=== PATIENT | female | born 1945 | race Two or more races ===

== ENCOUNTER 2025-02-24 13:29 | Emergency (ER) | payer MEDICARE, MEDICAID, SELFPAY ==
[2025-02-24 13:37] VITALS: BP 117/79; PULSE 109; RESP 20; TEMP 37.3; O2SAT 96
--- NOTE | 2025-02-24 13:46 | XR_ITS ---
EXAMINATION: Ankle, right 3 views . Technique: Ankle AP, oblique, lateral 3 views Date and time of exam: February 24, 2025 1407 hours INDICATIONS: Right ankle pain after falling 3 weeks ago. FINDINGS: Severe osteopenia No acute fracture depicted involving the ankle IMPRESSION: Limited study secondary to the severe osteopenia in the casting material No acute ankle fracture depicted
--- NOTE | 2025-02-24 13:46 | XR_ITS ---
Examination:Right hip AP, lateral, AP pelvis 3 views Technique: Hip AP lateral, AP pelvis, 3 views Exam date and time:February 24, 2025 1407 hours INDICATIONS: Patient fell 3 weeks ago with injury to the right hip, right hip pain. FINDINGS: Congenital right hip dysplasia Severe osteopenia No acute hip or pelvic fracture IMPRESSION: Severe osteopenia No definite acute hip fracture Recommend 1 day follow-up as clinically warranted, incidental note very large amounts of stool in the rectum.
--- NOTE | 2025-02-24 13:46 | XR_ITS ---
Examination: Knee, right , 3 views Technique: Knee AP, lateral, oblique 3 views Date and time of exam: February 24, 2025 1407 hours INDICATIONS: Patient fell 3 weeks ago with injury to the knee, knee pain. FINDINGS: Severe osteopenia. Acute fracture proximal tibial shaft, 4 mm offset at the fracture site Femoral condyles intact IMPRESSION: Fracture tibial shaft with 4 mm offset at the main fracture site
--- NOTE | 2025-02-24 13:46 | XR_ITS ---
Examination: AP chest single view Technique one AP portable upright chest single view Date and time: February 24, 2025 1415 hours INDICATIONS: Abdominal pain constipation shortness of breath today. FINDINGS: Severe osteopenia Severe thoracic dextroscoliosis. Normal heart size Severe lumbar levoscoliosis Significant stool throughout the colon, massive amounts of stool in the rectosigmoid Congenital right hip dysplasia IMPRESSION: Massive amounts of stool in the rectosigmoid, no obstruction
--- NOTE | 2025-02-24 13:46 | XR_ITS ---
Examination: Tibia-Fibula, 2 views Technique one AP lateral tibia-fibula right 2 views Date and time: February 24, 2025 1407 hours INDICATIONS: Patient fell 3 weeks ago with injury to the lower leg, lower leg pain. FINDINGS: Subacute comminuted fractures proximal tibial shaft with 4 mm offset on the attempted lateral view Partial healing fracture mid fibular shaft in addition with early healing IMPRESSION: Fractures as above
--- NOTE | 2025-02-24 13:49 | EDRME_ITS ---
Rapid Medical Screening Exam RME Arrival date/time: 02/24/25 13:29 CC: Constipation for 30 days, right ankle knee and leg pain status post fall on February 03. Care provider at bedside states the patient fell February 03 has had 1 x- ray where there was 2 cracked bones from [facility] referred to the emergency room for complete workup. No prior workup regarding the leg pain has been done since the fall. For the past 30 days patient states she has had been constipated with self evacuation of small amount of stool. Patient denies chest pain shortness of breath or difficulty breathing Chief Complaint: General Adult/Misc Complain Time Seen by Provider: 02/24/25 13:31 Vital signs: Vital Signs Temperature 99.2 F 02/24/25 13:37 Pulse Rate 109 H 02/24/25 13:37 Respiratory Rate 20 02/24/25 13:37 Blood Pressure 117/79 02/24/25 13:37 Pulse Oximetry (%) 96 02/24/25 13:37 Oxygen Delivery Method Room Air 02/24/25 13:37
--- NOTE | 2025-02-24 16:34 | EDNOTE_ITS ---
<Statement entered by Fawn Jimenez MD - 02/25/25 15:27> I, Fawn Jimenez MD, have reviewed the history, exam, and assessment of the patient. I have evaluated the patient independently and agree with the plan of care documented by [ ]. All diagnostic studies were reviewed and discussed. I confirm the diagnosis as documented by the Resident. I was present during the Medical Decision Making for this patient. The patient's plan of care was created between myself and the Resident and consistent with our discussion of the patient's case. ED General RME/HPI General Chief complaint: General Adult/Misc Complain Stated complaint: No BM X 1 month, fall, pain to right side Time Seen by Provider: 02/24/25 13:31 Arrival date/time: 02/24/25 13:29 RME / HPI RME / HPI narrative: 02/24/25 13:29 CC: Constipation for 30 days, right ankle knee and leg pain status post fall on February 03. Care provider at bedside states the patient fell February 03 has had 1 x- ray where there was 2 cracked bones from [facility] referred to the emergency room for complete workup. No prior workup regarding the leg pain has been done since the fall. For the past 30 days patient states she has had been constipated with self evacuation of small amount of stool. Patient denies chest pain shortness of breath or difficulty breathing 79-year-old female with past medical history of severe scoliosis, hypertension, hyperlipidemia, and paraplegia comes into the ED due to complaints of constipation for around 1 month and 1 week where she has not been able to pass any bowel movements. Patient states that she initially was able to pass some small amounts of stool, but that since then she has not been able to pass any stool at all and that she feels a lot of pain when she tries to go to the restroom to pass a bowel movement. She does state that the pain is similar to giving . She does mention that she has not been having any nausea or vomiting, but she has been having feelings of her food getting stuck in her stomach and not going down anymore. She stated that this got better with [id number] antiacids. Patient also had a fall around February 02 and she later on went to the primary care physician who stated her that she had a broken bone and advised her to come to the ED. Patient does have an Harrison wrap and stated that before the injury she was able to transfer from her wheelchair to the sofa or to her bed, but ever since the injury she has not been able to transfer anymore. Otherwise she does not have any chest pain, shortness of breath, fevers, dysuria, or dizziness. Otherwise no other complaints at this time. past medical history of severe scoliosis, hypertension, hyperlipidemia, and paraplegia Admits smoking marijuana, denies smoking cigarettes, denies alcohol, denies any other illicit drugs. Related Data Home Medications ?Medication ?Instructions ?Recorded ?Confirmed Amlodipine Besylate 5 mg PO QDAY ##0 07/19/13 gabapentin 300 mg capsule 300 mg PO TID #0 caps TIZANIDINE HCL 4 mg PO QDAY ##0 12/08/16 atorvastatin 80 mg tablet (Lipitor) 80 mg PO HS #0 tab s 12/08/16 omeprazole 20 mg tablet,delayed 20 mg PO QDAY ##0 11/19 08/06 release Previous Rx's ?Medication ?Instructions ?Recorded alprazolam 0.25 mg tablet (Xanax) 1 tab DIET ASSISTANT tid/prn an xiety #12 tabs 12/08/16 Allergies Allergy/AdvReac Type Severity Reaction Status Date / Time NKA* Allergy Uncoded 02/24/25 13:35 Review of Systems Review of Systems Systems Reviewed: All systems reviewed, normal except as documented Past Medical History Past Medical History Comments PMH COMMENT: past medical history of severe scoliosis, hypertension, hyperlipidemia, and paraplegia Admits smoking marijuana, denies smoking cigarettes, denies alcohol, denies any other illicit drugs. ED Exam Narrative Physical exam: Gen: A&O X 3, NAD HEENT: NCAT, EOMI, Pupils reactive BIANCA, not icteric. External ears normal. No rhinorrhea. Dry mucous membranes. Neck: Supple, full range of motion, no observable masses, No meningeal sign. Lungs: No Respiratory distress, clear bilateral. CV: RRR, no murmurs. Abdomen: Soft and nondistended, but mass in the lower abdomen noted most likely stool given severe obstipation. Abdomen deformity secondary to scoliosis MSK: Bilateral lower extremity paraplegia, right leg was wrapped with an Harrison wrap, pulses were present bilaterally, not able to move bilateral lower extremities secondary to paraplegia. Swollen right foot. Bilateral upper extremities thin, but no deformities or lesions. Skin: No rashes, petechiae, lesions.. Neuro: No focal neurological deficits appreciated, sensory and motor intact. Psych: Cooperative, appropriate mood and effect. Course Quality Measures none Orders Category Date Time Status Enema Administration NOW Care 02/24/25 16:22 Active Splint / Immobilizer STAT Care 02/24/25 17:17 Active XR abdomen series w chest 1V Stat Exams 02/24/25 13:46 Completed XR ankle comp RT min 3V Stat Exams 02/24/25 13:46 Completed XR hip RT w pelvis 2-3V Stat Exams 02/24/25 13:46 Completed XR knee RT 3V Stat Exams 02/24/25 13:46 Completed XR tibia fibula RT 2V Stat Exams 02/24/25 13:46 Completed Vital Signs Vital signs: Vital Signs Temperature 99.2 F 02/24/25 13:37 Pulse Rate 109 H 02/24/25 13:37 Respiratory Rate 20 02/24/25 13:37 Blood Pressure 117/79 02/24/25 13:37 Pulse Oximetry (%) 96 02/24/25 13:37 Oxygen Delivery Method Room Air 02/24/25 13:37 Discharge Plan Prescriptions/Referrals Prescriptions/Med Rec: No Action Amlodipine Besylate 5 MG tablet 5 mg PO QDAY Qty: 0 gabapentin 300 MG capsule 300 mg PO TID Qty: 0 atorvastatin [Lipitor] 80 MG tablet 80 mg PO HS Qty: 0 omeprazole 20 MG tablet,delayed release (DR/EC) 20 mg PO QDAY Qty: 0 TIZANIDINE HCL 4 MG capsule 4 mg PO QDAY Qty: 0 alprazolam [Xanax] 0.25 MG tablet 1 tab DIET ASSISTANT tid/prn anxiety Qty: 12 0RF Referrals: Gunjan Calloway PA-C [Primary Care Provider] - In 1 week Basim Jones MD [Physician] - In 1 week Problem List Clinical Impression: Obstipation Patient/Caregiver Discharge Instructions Other Activity Instructions:: Follow-up with primary care physician within 5 days Follow-up with orthopedic surgeon Dr. Jones in 2 weeks Come back to the ER if symptoms persist or worsen. Print Language: Z[place]ian MDM Narrative MDM hospital course: Patient was seen and assessed immediately upon arrival to the room. Diagnostic imaging was ordered. Patient's ankle x-ray did not show any acute fracture and tibia/fibula x-ray did show subacute comminuted fracture of the proximal tibial shaft with a 4 mm offset and a partially healing fracture mid fibular shaft. Patient's knee x-ray did not show again fracture of the tibial shaft with a 4 mm offset at the main fracture site and hip/pelvis x-ray show no acute fracture and only osteopenia osteopenia. Patient's chest/abdomen x-ray showed massive amounts of stool in the rectosigmoid, but no obstruction. 16: 22: Ordered soapsuds enema. 17:06 Spoke with orthopedic surgeon who recommended no surgery at this time given that patient was not able to transfer or stand and daughter did not want surgery at this time.Recommended to place long leg splint. 17:40: Manual disimpaction was done as patient did not have a bowel movement after subsequent enema. Copious amounts of hard stool was extracted and then stool consistency was softer we will try another soapsub enema and discharge afterwards. Case disclosed with Attending Dr. Tony Villalobos PGY2 Disclaimer: Even though this this note was dictated by speech recognition and even though it was carefully revised there may still be minor errors in cement finishing supervisor due to voice recognition software.
[2025-02-24 17:07] VITALS: BP 160/93; PULSE 89; RESP 16; TEMP 37; O2SAT 96
--- NOTE | 2025-02-24 18:10 | PD.EDADDENDU ---
Emergency Room Addendum Addendum Narrative: I took over the care from previous shift physician at 6 PM on 02/24/2025. See previous notes for complete H & P and ED course. I reviewed all diagnostic test results. My interpretation of the Ankle x-ray is Limited study secondary to the severe osteopenia in the casting material. No acute ankle fracture depicted. My interpretation of the Chest/Abdomen x-ray is Massive amounts of stool in the rectosigmoid, no obstruction. My interpretation of the Hip/Pelvis x-ray is Severe osteopenia. No definite acute hip fracture. Recommend 1 day follow-up as clinically warranted, incidental note very large amounts of stool in the rectum. My interpretation of the Knee x-ray is Fracture tibial shaft with 4 mm offset at the main fracture site. My interpretation of the Tibia/Fibula x-ray is Subacute comminuted fractures proximal tibial shaft with 4 mm offset on the attempted lateral view. Partial healing fracture mid fibular shaft in addition with early healing. Diagnoses include: Obstipation. Treatment here included enema, splint immobilizer. Based on my best medical judgment, made decision no further evaluation or treatment indicated at this time. Patient understands and agrees to the discharge instructions customized and printed, see below. Scotty Stauffer MD
[2025-02-24 18:42] VITALS: BP 152/87; PULSE 90; RESP 18; TEMP 37; O2SAT 95
--- NOTE | 2025-02-24 18:51 | PC.NURSE ---
HAVE CALLED DAUGHTER 3X NO ANSWER, TO COME P/U PT.
--- NOTE | 2025-02-24 19:18 | PC.NURSE ---
called daughter to slat pickler patient no answer at this time. malinda left.
== END 2025-02-24 19:35 | disposition home or self-care (01) ==
PROVIDERS: Emergency Provider Emergency Medicine; PCP Physician Assistant
DX: K59.00 Constipation, unspecified (principal); S82.101A Unspecified fracture of upper end of right tibia, initial encounter for closed fracture; S79.921A Unspecified injury of right thigh, initial encounter; M25.571 Pain in right ankle and joints of right foot; M85.88 Other specified disorders of bone density and structure, other site; W19.XXXA Unspecified fall, initial encounter
CPT/HCPCS: 73502; 73562; 73590; 73610; 74022; 99284